=== PATIENT | female | born 1945 | race Hispanic/Latino ===

== ENCOUNTER → 2022-06-13 | Outpatient (CLI) | payer MEDICARE ==
[~2022-06-13] MED LIST: AEC81 PO; BETA15CR6 TP; CYCL-309 PO; DORZ10DR9 OU; ERGO500014 PO; GADOTERATE MEGLUMINE 10 MMOL/20 ML VIAL IV ONE; GLYB1TAB3 PO; IBUP-2070 PO; INSLAN SQ; LEVO100T12 PO; LEVO75TA10 PO; LIDOCAINE TP; METO-391 PO; NIFE30TA98 PO; XALA2.5OS OS
== END | disposition home or self-care (01) ==
LOC: RAH 09:31
PROVIDERS: ATTEND Internal Medicine
DX: M47.812 Spondylosis without myelopathy or radiculopathy, cervical region (principal); M48.00 Spinal stenosis, site unspecified; M45.9 Ankylosing spondylitis of unspecified sites in spine; M50.221 Other cervical disc displacement at C4-C5 level
CPT/HCPCS: 72156; 72040; A9575

== ENCOUNTER 2022-07-19 07:00 | Observation (INO) | payer MEDICARE ==
[~2022-07-19] VITALS: Ht 152.4 cm; Wt 63.2 kg
[~2022-07-19 07:00] MED LIST changes: -BETA15CR6 TP; -CYCL-309 PO; -DORZ10DR9 OU; -ERGO500014 PO; -GADOTERATE MEGLUMINE 10 MMOL/20 ML VIAL IV ONE; -GLYB1TAB3 PO; -IBUP-2070 PO; -INSLAN SQ; -LIDOCAINE TP; -METO-391 PO; -NIFE30TA98 PO; -XALA2.5OS OS
[2022-07-19 11:55] LABS: BASOPHILS % (AUTO) 0.4 % (0.0-5.0); EOSINOPHILS % (AUTO) 1.8 % (0.0-8.0); HEMATOCRIT 38.9 % (36-48); LYMPHOCYTES % (AUTO) 21.8 % (21.0-51.0); MEAN CORPUSCULAR HEMOGLOBIN 28.7 pg (27.0-33.0); MEAN CORPUSCULAR HGB CONC 32.6 g/dL (32.0-36.0); MONOCYTES % (AUTO) 5.8 % (3.0-13.0); NEUTROPHILS % (AUTO) 69.8 % (40.0-77.0); PLATELET COUNT (AUTO) 264 K/uL (130-400); RED BLOOD CELL COUNT(AUTO) 4.42 MIL/uL (4.00-5.50); RED CELL DISTRIBUTION WIDTH 13.2 % (11.0-15.5)
[2022-07-19 12:10] LABS: CREATININE 1.1 mg/dL (0.5-1.5); POTASSIUM 4.2 mmol/L (3.5-5.1)
[2022-07-20 08:45] VITALS: BP 146/60
[2022-07-20] MEDS ORDERED: PREVAGEN PO (09:17)
[2022-07-20] MEDS ORDERED: FURO40TA5 PO (09:17)
[2022-07-20] MEDS ORDERED: DILT120C92 PO ×2 (09:17)
[2022-07-20] MEDS ORDERED: GLIP5TAB11 PO (09:17)
[2022-07-20] MEDS ORDERED: LOSA100T58 PO (09:17)
[2022-07-20] MEDS ORDERED: INSU100V37 SQ (09:17)
[2022-07-20] MEDS ORDERED: ERGO500093 PO (09:17)
[2022-07-20] MEDS ORDERED: VITA1CAP85 PO (09:17)
[2022-07-20] MEDS ORDERED: ASCO500C18 PO (09:17)
[2022-07-20] MEDS ORDERED: ATEN25TA PO (09:17)
[2022-07-21] VITALS (25 sets, daily range): BP systolic 102–153; BP diastolic 39–66
[2022-07-21] MEDS ORDERED: THROMBIN-JMI 5000 UNIT/VIAL TP ONE ×2 (05:02→07:21)
[2022-07-21] MEDS ORDERED: BUPIVACAINE/EPI/PF 0.25% 10ML VIAL IJ ONE (05:02)
[2022-07-21] MEDS ORDERED: CEFAZOLIN SODIUM 1 GM VIAL ONE ×2 (06:45→07:21)
[2022-07-21] MEDS ORDERED: 0.9%NACL 1000ML 1,000 ML IV ONE (06:45)
[2022-07-21] MEDS ORDERED: ASPI-1026 PO (07:18)
[2022-07-21] MEDS ORDERED: LIDOCAINE PF 100MG/5ML (2%) SYRINGE 5ML ONE (07:55)
[2022-07-21] MEDS ORDERED: SUCCINYLCHOLINE CHLORIDE 20 MG/ML 10 ML VIAL ONE (07:55)
[2022-07-21] MEDS ORDERED: ONDANSETRON 4MG INJ ONE ×2 (07:56→08:00)
[2022-07-21] MEDS ORDERED: MIDAZOLAM HCL 1 MG/ML 2ML VIAL ONE (07:56)
[2022-07-21] MEDS ORDERED: PROPOFOL 10 MG/ML 20ML VIAL IV ONE (07:56)
[2022-07-21] MEDS ORDERED: ROCURONIUM 10MG/1ML SYR 10 MG/ML ML ONE (07:56)
[2022-07-21] MEDS ORDERED: GLYCOPYRROLATE 1 MG/5 ML SYRINGE ONE ×2 (07:56→13:01)
[2022-07-21] MEDS ORDERED: DEXAMETHASONE SOD PHOSPHATE 10MG/ML 1ML VIAL ONE ×2 (07:56→08:00)
[2022-07-21] MEDS ORDERED: NEOSTIGMINE 5MG/5ML SYR IV ONE (07:56)
[2022-07-21] MEDS ORDERED: FENTANYL CITRATE PF 50 MCG/1 ML 2ML VIAL ONE (07:57)
[2022-07-21] MEDS ORDERED: PHENYLEPHRINE HCL 10 MG/ML 1ML VIAL IV ONE (08:05)
[2022-07-21] MEDS ORDERED: ARTIFICIAL TEARS 3.5 GM OINTMENT ONE (09:39)
[2022-07-21] MEDS ORDERED: FENTANYL CITRATE PF 50 MCG/1 ML 5ML AMP IV ONE (10:12)
[2022-07-21] MEDS ORDERED: NALOXONE HCL 0.4 MG/1 ML ML ONE (11:47)
[2022-07-21] MEDS ORDERED: PROMETHAZINE HCL 25 MG/ML 1ML AMPULE IM PRN (12:00)
[2022-07-21] MEDS ORDERED: MORPHINE 2 MG SYG IVP PRN (12:00)
[2022-07-21] MEDS ORDERED: HYDROCODONE/ACETAMINOPHEN 5/325 MG TAB PO PRN (12:00)
[2022-07-21] MEDS: DEXAMETHASONE SOD PHOSPHATE 4 MG/ML 1ML VIAL IVP SCH ×2 (12:00→17:56)
[2022-07-21] MEDS ORDERED: 0.9%NACL 10ML VIAL IVP PRN (12:00)
[2022-07-21] MEDS ORDERED: FUROSEMIDE 40 MG TABLET PO PRN (12:00)
[2022-07-21] MEDS: CEFAZOLIN SODIUM 2 GM VIAL IVP SCH ×2 (12:00→21:27)
[2022-07-21] MEDS ORDERED: ASPIRIN 325MG TAB PO PRN (12:00)
[2022-07-21] MEDS: ASCORBIC ACID 500 MG TAB PO SCH (12:22)
[2022-07-21] MEDS ORDERED: HYDROMORPHONE 1 MG INJ ONE (12:33)
[2022-07-21] MEDS ORDERED: DILTIAZEM HCL PO SCH (13:00)
[2022-07-21] MEDS ORDERED: DILTIAZEM 120MG SR CAP PO SCH (13:00)
[2022-07-21] MEDS ORDERED: ASPIRIN 81 MG EC TAB PO SCH (13:00)
[2022-07-21] MEDS: GLIPIZIDE 5 MG TABLET PO SCH ×2 (14:00→17:00)
[2022-07-21] MEDS: LACTATED RINGERS 1000ML 1,000 ML IV SCH ×2 (14:00→17:36)
[2022-07-21] MEDS: TRAMADOL HCL 50 MG TABLET PO PRN (16:01)
[2022-07-21] MEDS ORDERED: LOSARTAN 100 MG TABLET PO SCH (21:00)
[2022-07-21] MEDS ORDERED: ATENOLOL 25 MG TABLET PO SCH (21:00)
[2022-07-22] VITALS: BP 133/59
[2022-07-22] MEDS: TRAMADOL HCL 50 MG TABLET PO PRN (02:32)
[2022-07-22 04:00] VITALS: BP 135/59
[2022-07-22] MEDS: CEFAZOLIN SODIUM 2 GM VIAL IVP SCH (04:00)
[2022-07-22] MEDS ORDERED: LEVOTHYROXINE 100 MCG TABLET ONE (05:27)
[2022-07-22] MEDS ORDERED: INSULIN HUMULIN R 100 UNIT/ML 3ML ONE (05:28)
[2022-07-22] MEDS: DEXAMETHASONE SOD PHOSPHATE 4 MG/ML 1ML VIAL IVP SCH ×2 (05:38)
[2022-07-22] MEDS ORDERED: LEVOTHYROXINE 100 MCG TABLET PO SCH (07:30)
[2022-07-22] MEDS ORDERED: INSULIN HUMULIN R 100 UNIT/ML 3ML SQ SCH (07:30)
[2022-07-22] MEDS ORDERED: LEVOTHYROXINE 75 MCG TABLET PO SCH (07:30)
[2022-07-22] MEDS ORDERED: PREVAGEN PO SCH (09:00)
[2022-07-22] MEDS ORDERED: VITAMIN B COMPLEX 1 CAPSULE PO SCH (09:00)
[2022-07-22] MEDS ORDERED: DILTIAZEM HCL PO SCH (09:00)
[2022-07-22] MEDS ORDERED: DILTIAZEM 120MG SR CAP PO SCH (09:00)
[2022-07-22] MEDS ORDERED: INSULIN DEGLUDEC 24 UNIT SQ SCH (09:00)
[2022-07-22] MEDS: GLIPIZIDE 5 MG TABLET PO SCH (09:28)
[2022-07-22] MEDS: ASCORBIC ACID 500 MG TAB PO SCH (09:28)
[2022-07-22] MEDS: LACTATED RINGERS 1000ML 1,000 ML IV SCH (09:32)
[2022-07-22 10:50] VITALS: BP 150/67
[2022-07-28] MEDS ORDERED: ERGOCALCIFEROL (VITAMIN D2) 50,000 UNIT CAPSULE PO SCH (09:00)
== END 2022-07-22 13:05 | disposition home or self-care (01) ==
LOC: DAHIP 07-21 06:10 → EDSTATUS 07-21 07:00 → 4DH 07-21 13:20
PROVIDERS: ADMIT Neurological Surgery; ATTEND Neurological Surgery
DX: M48.02 Spinal stenosis, cervical region (principal); Z20.822 Contact with and (suspected) exposure to COVID-19; M54.12 Radiculopathy, cervical region; G99.2 Myelopathy in diseases classified elsewhere; I10 Essential (primary) hypertension; E11.9 Type 2 diabetes mellitus without complications; E03.9 Hypothyroidism, unspecified; E78.2 Mixed hyperlipidemia; Z98.1 Arthrodesis status; Z79.899 Other long term (current) drug therapy
CPT/HCPCS: 80048; 85025; 87426; 36415; 71045; 22855; 22551; 22845; 20930; 96374; 96375; 82948 ×7; 72020; 96376; A6260; G0378 ×25; A4510; A4663; J7030 ×2; A4344; J7120; J3010 ×2; J0690 ×3; J1170; J2310; J3490 ×5; J1100 ×6; J2710; J0330; J2001; J2250; J2704; J2405 ×2; J2370; C1713; A4215; A4223; A4222; A4221; A4600; J1815

== ENCOUNTER → 2023-05-16 | Outpatient (CLI) | payer MEDICARE ==
[~2023-05-16] MED LIST changes: +ASCO500C18 PO; +ASPI-1026 PO; +ATEN25TA PO; +DILT120C78 PO; +ERGO500093 PO; +FURO40TA5 PO; +GLIP5TAB11 PO; +INSU100V37 SQ; +LOSA100T59 PO; +PREVAGEN PO; +VITA1CAP85 PO
== END | disposition home or self-care (01) ==
LOC: RAH 08:58
PROVIDERS: ATTEND Neurological Surgery
DX: M47.812 Spondylosis without myelopathy or radiculopathy, cervical region (principal); M43.22 Fusion of spine, cervical region; M48.062 Spinal stenosis, lumbar region with neurogenic claudication
CPT/HCPCS: 72040

== ENCOUNTER → 2023-05-25 | Outpatient (CLI) | payer MEDICARE ==
[2023-05-16 13:03] LABS: CREATININE 0.9 mg/dL (0.5-1.5)
[~2023-05-25] MED LIST changes: +GADOTERATE MEGLUMINE 10 MMOL/20 ML VIAL IV ONE
== END | disposition home or self-care (01) ==
LOC: RAH 10:36
PROVIDERS: ATTEND Neurological Surgery
DX: M51.36 Other intervertebral disc degeneration, lumbar region (principal); M48.062 Spinal stenosis, lumbar region with neurogenic claudication
CPT/HCPCS: 72158; A9575; 36415; 82565; 84520